=== PATIENT | female | born 1970 | race Caucasian/White ===

== ENCOUNTER 2023-12-27 18:44 | Emergency (ER) | payer OTHER, SELFPAY ==
[2023-12-27 18:58] VITALS: BP 157/96
[2023-12-27 19:11] VITALS: BP 127/62
[2023-12-27] MEDS: NSS 1000 IV (20:49)
[2023-12-27] MEDS: REGLAN 10 MG IV (20:49)
[2023-12-27] MEDS: TORADOL 15 MG IV (20:50)
[2023-12-27] MEDS: BENADRYL 25 MG IV (20:50)
[2023-12-27 21:01] LABS: % Basophils 0.3 % (0-2); % Eosinophils 1.1 % (0-6); % Immature Granulocytes 0.2 % (0-0.5); % Lymphocytes 33.5 % (20.5-51.1); % Monocytes 5.7 % (1.7-9.3); % Neutrophils 59.2 % (42.2-75.2); Absolute Eosinophils 0.1 10^3/uL (0-0.7); Absolute Lymphocytes 3.1 10^3/uL (1.2-3.4); Absolute Monocytes 0.5 10^3/uL (0.1-0.6); Absolute Neutrophils 5.5 10^3/uL (1.4-6.5); Hemoglobin 14.1 g/dL (12.0-16.0); Mean Corp Hgb Conc. 36.2 g/dL (33.0-37.0); Mean Corpuscular Hgb 31.2 pg (27.0-31.0); Mean Corpuscular Volume 86.3 fL (81.0-99.0); Mean Platelet Volume 9.7 fL (7.4-10.4); Nucleated Red Blood Cells % 0 %; Platelet Count 313 10^3/uL (130-400); Red Blood Cell Count 4.52 10^6/uL (4.20-5.40); Red Cell Dist. Width 12.7 % (11.5-14.5); White Blood Cell Count 9.3 10^3/uL (4.8-10.8)
[2023-12-27 21:19] LABS: COVID-19 Antigen Negative (Negative)
[2023-12-27 21:37] VITALS: BP 130/91
[2023-12-27 21:49] LABS: ALT (SGPT) 37 U/L (0-35); AST (SGOT) 34 U/L (14-36); Albumin 4.2 g/dl (3.5-5.0); Alkaline Phosphatase 58 U/L (38-126); Blood Urea Nitrogen 13 mg/dl (7-17); Calcium 9.9 mg/dl (8.4-10.2); Carbon Dioxide 23 mmol/L (22-30); Chloride 102 mmol/L (98-107); Glucose 99 mg/dl (70-99); Potassium 3.7 mmol/L (3.5-5.1); Sodium 137 mmol/L (135-145); Total Bilirubin 2.2 mg/dl (0.2-1.3); Total Protein 7.3 g/dl (6.3-8.2); eGFR > 60.00
[2023-12-27 21:55] LABS: Troponin I < 0.012 ng/ml
[2023-12-27 22:00] VITALS: BP 119/79
--- NOTE | 2023-12-27 23:08 | ED.GENMED ---
History of Present Illness
General
Chief Complaint: Headache
Source: patient
Exam Limitations: none
Time Seen by Provider: 12/27/23 20:26
Nursing documentation reviewed up to this point in time: agreed with
Travel History
Have you had any contact with someone who has COVID-19?: No
Do you have any symptoms of coronavirus? Fever > 100 degrees, chills, cough, shortness of breath, sore throat, loss of taste or smell, muscle aches, or headache?: No
History of Present Illness
History of Present Illness:
53-year-old female presents to the emergency room for evaluation of headache. Patient reports gradual onset about 4 days ago and headache has been essentially constant since that time. She reports left-sided aching radiates down towards the left
shoulder. No clear triggering factors noted, initially relieved with NSAIDs but no longer noticing improvement with xrea-tpd-[id number] medications. She denies any associated nausea or vomiting. Denies any fevers or chills. Has not had any URI type
symptoms. Denies any change in vision or speech. Denies any focal weakness or numbness in her extremities. Denies any dizziness. She denies any jaw claudication. She denies any trauma to the head. In addition to headache she says she has had
some heartburn that she says started 2 days ago. No exertional pain. No shortness of breath. Similar to prior heartburn. She also says she has generalized fatigue.
Past History
Past History
ED Past Medical History: Asthma, GERD and HTN
ED Past Surgical History: Cholecystectomy and Other ([place] teeth, eye surgery as a child); Negative Cardiac
Social History
Tobacco: Non-smoker
Alcohol: None
Drug: None
Personal:
Living: with family
Employment: Employed
Family History
Family History: Other (Noncontributory)
Review of Systems
Review of Systems
All Other Systems: ROS reviewed and negative except as documented in HPI and ROS
Constitutional: Reports fatigue; Denies fever or chills
EENT: Denies sore throat or runny nose
Respiratory: Denies cough or trouble breathing
Cardiac: Reports chest pain (Heartburn); Denies diaphoresis or palpitations
ABD/GI: Denies abdominal pain, nausea, vomiting or diarrhea
: Denies flank pain
Musculoskeletal: Denies neck pain or back pain
Neurological: Reports headache; Denies dizzy, weakness or numbness
Phy Exam
Physical Exam
Physical Exam:
General: Awake, alert, oriented x3; no acute distress
Head: Normocephalic, atraumatic
Eyes: Conjunctiva normal, EOMI, pupils equal round reactive to light bilateral
Throat: Airway intact, handling secretions
Neck: Trachea midline, supple without meningismus, no carotid bruits
Lungs: Clear to auscultation bilaterally, no wheezing, rales, rhonchi
Heart: Regular rate and rhythm, no murmurs, gallops, or rubs
Abd: Soft, non distended, nontender
Neuro: Cranial nerves intact 2 through 12, speech fluid without dysarthria aphasia, no limb ataxia, motor and sensory function intact and symmetric upper and lower extremities
Skin: no rash
Extremities: Warm and well-perfused with good pulses in all extremities
Scores
Heart Failure Risk
Heart Failure Risk Score: Not Applicable
Heart Score for Chest Pain Patients
STEMI patient?: No
History: Slightly or Non-Suspicious
ECG: Normal
Age: >45 - <65 years
Risk Factors: 1 or 2 Risk Factors
Troponin: </= Normal Limit
Heart Score for Chest Pain Patients: 2
Heart Score Risk: 2.5% MACE over next 6 weeks
Withdrawal Assessment of Alcohol
Withdrawal Assessment Completed?: Not applicable
Course
Orders/Labs/Results
Orders:
Orders
12/27/23 19:00
Electrocardiogram (*1) Urgent
Reason for Study: Abdominal Pain
EKG- Treatment ONCE
12/27/23 20:28
CT Head W/o Iv Contrast Urgent
Comment:
Reason For Exam: persistent new headache
0.9% Sodium Chloride 1000 ml [Nss] 1,000 ml IV BOLUS
Diphenhydramine [Benadryl] 25 mg IV NOW STA
Ketorolac [Toradol] 15 mg IV NOW STA
Metoclopramide [Reglan] 10 mg IV NOW STA
12/27/23 20:47
COVID-19 Antigen Urgent
Source: Nasal Swab
Complete Blood Count/With Diff Urgent
Influenza A+B Rapid Molecular Urgent
ELLA Source: Nasal Swab
Specimen Description:
12/27/23 21:25
Comprehensive Metabolic Panel Urgent
Troponin I Urgent
Abnormal Lab Results
12/27/23 12/27/23
20:47 21:25
MCH 31.2 H pg
(27.0-31.0)
Total Bilirubin 2.2 H mg/dl
(0.2-1.3)
ALT 37 H U/L
(0-35)
12/27/23 20:47
12/27/23 21:25
Vital Signs
Initial and Last Documented VS:
Initial Vital Signs
Temp Pulse Resp BP Pulse Ox
36.7 C 80 18 157/96 99
12/27/23 18:58 12/27/23 18:58 12/27/23 18:58 12/27/23 18:58 12/27/23 18:58
Last Documented Vital Signs
Temp Pulse Resp BP Pulse Ox
36.7 C 66 15 119/79 94
12/27/23 18:58 12/27/23 19:16 12/27/23 19:16 12/27/23 22:00 12/27/23 22:30
MDM/Problems Addressed
Differential Diagnosis Includes:
Headache: Tension headache, migraine headache, less likely intracranial hemorrhage or brain mass
Chest pain: Heartburn, costochondritis, pericarditis, less likely ACS
MDM/Problems Addressed:
53-year-old female presents for evaluation of headache gradual onset over the past 4 days but consistent. Has also had some mild heartburn over the past 2 days (I suspect this may be related to NSAID use for headache). Hypertensive on arrival
normalized by my assessment. Rest of vitals within normal limits. Exam as above. Plan to place an IV check labs including a CBC and a CMP, will send his viral swabs. Check CT head. Check an EKG and troponin given her chest discomfort although
again suspect likely GI related. Monitor closely reassess after the above. Will treat headache with Toradol, Reglan, Benadryl, fluids.
Labs reviewed: CBC unremarkable, CMP no clinically significant abnormalities. Troponin negative x 1 with consistent symptoms for 2 days this is sufficient to rule out an acute coronary syndrome. CT head negative for any acute pathology. On
clinical reassessment patient says headache improved with ED treatment here she is feeling better. Vital signs normal. 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
of stress recently. I think she is stable for discharge to follow-up with her primary doctor as an outpatient. She feels comfortable with this plan. Spoke about return precautions all questions answered
Chronic conditions affecting care:
GERD, chronic neck pain
Acute Exacerbation and/or Progression of Chronic Illness:
Acutely hypertensive likely related to headache�improved with treatment of headache no additional antihypertensive indicated at present
Acute Exacerbation and/or Progression of Chronic Illness: HTN
*Radiology
Radiology exam reviewed: radiology read reviewed
*Pulse Oximetry
Patient hypoxic: no
*EKG
Interpreted by ED Provider?: Yes
Heart Rate: 70
Rate: normal
Rhythm: sinus
[place]: normal axis
Interval: normal interval
QRS Pattern: normal QRS
Ischemia: no ischemia
*Critical Care Note
Total Time (30-74mins, 75-104mins- exclusive of procedures): Not Applicable
Data Reviewed
Review of Other/Old Records Reveals: Labs and Records
Source: patient and other (Friend)
ED Attending Note
-
Portions of this chart may have been created with voice recognition software.� Occasional wrong word or��sound alike� substitutions may have occurred due to the inherent limitations of voice recognition software.
Discharge Plan
Departure
Patient Disposition: Home (Routine Discharge)
Date of Disposition: 12/27/23
Time of Disposition: 23:00
Patient with high blood pressure during this ER visit?: Yes
Discharge Problem:
Headache, Chest pain
Instructions: Chest Pain (DC), Headache, Adult (DC)
Prescriptions:
No Action
ylcenan-clspsqedzontq-goxrfvlp [Excedrin Migraine] 1 TABLET tablet
2 tab PO PRN PRN (Reason: headache)
pantoprazole [Protonix] 20 MG tablet,delayed release (DR/EC)
20 mg PO DAILY
losartan 25 MG tablet
25 mg PO DAILY
methylprednisolone [Medrol (Lewis)] 4 mg tablets,dose pack
4 mg PO DIRECTED Qty: 21 0RF
diazepam [Valium] 5 mg tablet
5 mg PO BID PRN (Reason: muscle spasm) Qty: 8 0RF
lidocaine 5 % adhesive patch,medicated
1 patch topical DAILY Qty: 30 0RF
diazepam [Valium] 5 mg tablet
5 mg PO BID PRN (Reason: muscle spasm) Qty: 8 0RF
Referrals:
Richard Guan CRNP [Family Provider] - Call in 1-3 days for appt
Activity Restrictions/Additional Instructions:
Thank you for visiting the Emergency Department at [facility].
1. Please schedule a follow up appointment as directed. Call first thing tomorrow morning to make an appointment.
2. If indicated, please take your medications as instructed and indicated on discharge paperwork.
3. If any of your symptoms do not improve, or persist, or become more severe within 6-12 hours, please return to the emergency department for further care.
4. Please return to the emergency department if you develop a headache, neck pain/stiffness, fever greater than 100.4F, chest pain, shortness of breath, persistent nausea, vomiting, slurred speech, difficulty walking, numbness/tingling, weakness,
signs of infection or any other symptoms that are worrisome to you.
Please call [phone] if you have any questions.
Interventions
Interventions:
*Risk Screen - Suicide Last Done: 12/27/23 18:58
*General Assessment Last Done: 12/27/23 18:58
*Neglect/Abuse Screening Last Done: 12/27/23 18:58
ED- Fall Risk Assessment Last Done: 12/27/23 20:33
*ED COVID-19 Vaccine History Last Done: 12/27/23 18:58
ED- Neurological Assessment Last Done: 12/27/23 20:33
== END 2023-12-27 23:21 | disposition home or self-care (01) ==
LOC: EMR 18:44
PROVIDERS: EMERGENCY PHYSICIAN Emergency Medicine; FAMILY PHYSICIAN Nurse Practitioner Family
DX: R10.9 Unspecified abdominal pain (principal); R07.9 Chest pain, unspecified; R51.9 Headache, unspecified; Z11.52 Encounter for screening for COVID-19
CPT/HCPCS: 99285; 96374; 96375 ×2; 96361; 70450; 80053; 84484; 85025; 87502; 87811; 93005